=== PATIENT | female | born 1990 | race Two or more races ===

== ENCOUNTER 2023-11-19 20:09 | Emergency (ER) | payer OTHER ==
[2023-11-19 20:28] VITALS: BP 121/83; PULSE 102; RESP 18; TEMP 98.4; BMI 27.1
[2023-11-19] MEDS ORDERED: IBUPROFEN 600 MG TABLET (FP) PO ONE (20:59)
[2023-11-19] MEDS ORDERED: ACETAMINOPHEN 500 MG TABLET (FP) ONE (20:59)
[2023-11-19] MEDS: IBUPROFEN 600 MG TABLET (FP) PO ONE (21:00)
[2023-11-19] MEDS: ACETAMINOPHEN 500 MG TABLET (FP) PO ONE (21:01)
== END 2023-11-19 21:13 | disposition home or self-care (01) ==
LOC: JERFT 20:09
DX: S86.002A Unspecified injury of left Achilles tendon, initial encounter (principal); X50.1XXA Overexertion from prolonged static or awkward postures, initial encounter; Y93.68 Activity, volleyball (beach) (court)
CPT/HCPCS: 99283-25